=== PATIENT | male | born 1955 | race Caucasian/White ===

== ENCOUNTER 2017-06-08 06:50 | Emergency (ER) | payer OTHER ==
[~2017-06-08] VITALS: Ht 180.3 cm; Wt 63.5 kg
--- NOTE | ~2017-06-08 | EKG ---
[address] [place] [address] ELECTROCARDIOGRAM REPORT Name: MONY MINA [id number] Admission: 06/08/17 Attend Phys: Discharge: Date of : 57 Report #: [id number] THIS REPORT FOR: //name// [facility] ED Test Date: 2017-06-08 Test Time: 06:54:23 Pat Name: MONY MINA Department: Room: Gender: [employer]: : 1955 Requested By: Destinee Bonilla Order Number: [id number] MD: Carlos Barnett Measurements Intervals [place] Rate: 80 P: 53 LA: 135 QRS: 31 QRSD: 82 T: 30 QT: 361 QTc: 417 Interpretive Statements Sinus rhythm Atrial premature complexes Borderline low voltage, extremity leads No previous ECG available for comparison Electronically Signed On 06-08-2017 8:07:33 TILE SORTER by Carlos Barnett [email or web address] <ELECTRONICALLY SIGNED> By: Carlos Barnett MD, [facility] 06/08/17 [id number] Carlos Barnett MD, FAC /EPI
[2017-06-08] MEDS ORDERED: ASPIRIN325 (06:57)
[2017-06-08] MEDS ORDERED: MAPAP500 MG PO (07:01)
[2017-06-08 07:12] LABS: ABSOLUTE NEUTROPHILS 7.6 thou/uL (1.4-8.2); BASOPHILS 0.6 % (0.0-2.0); EOSINOPHILS 1.5 % (0.0-3.0); HEMOGLOBIN 11.6 gm/dL (14.0-18.0); LYMPHOCYTES 11.1 % (24.0-44.0); MCH 30.6 pg (26.0-34.0); MCHC 34.1 g/dL (28.0-37.0); MCV 89.6 fL (80.0-100.0); MONOCYTES 11.1 % (1.0-8.0); PLATELET COUNT 331 thou/uL (150-400); POLYS 75.7 % (36.0-66.0); RBC 3.79 mil/uL (4.50-6.00); RDW 13.4 % (10.5-14.5); WBC 10.1 thou/uL (4.0-11.0)
[2017-06-08 07:20] LABS: ANION GAP 5 mmol/L (7-16); BUN 26 mg/dL (7-18); CALCIUM 8.5 mg/dL (8.5-10.1); CHLORIDE 105 mmol/L (98-107); CO2 30 mmol/L (21-32); CREATININE 0.8 mg/dL (0.7-1.3); GLUCOSE 87 mg/dL (74-106); POTASSIUM 3.9 mmol/L (3.5-5.1); SODIUM 140 mmol/L (136-145)
[2017-06-08 07:30] LABS: TROPONIN-I < 0.04 ng/mL (<0.06)
[2017-06-08] MEDS ORDERED: HYDROCHLOROTHIA25 M2 PO (09:52)
== END 2017-06-08 10:03 | disposition home or self-care (01) ==
LOC: ER 06:50
PROVIDERS: Emergency Medicine
DX: R07.9 Chest pain, unspecified (principal); K21.9 Gastro-esophageal reflux disease without esophagitis; R60.9 Edema, unspecified; F15.10 Other stimulant abuse, uncomplicated